=== PATIENT | male | born 1945 | race Caucasian/White ===

== ENCOUNTER 2016-07-14 13:41 | Outpatient (CLI) | payer OTHER ==
--- NOTE | 2016-07-14 19:21 | Diagnostic Imaging Report ---
Report Submission Date: Jul 14, 2016 3:04:00 PM CDT Patient Study Name: RASHIDA GUIDO Date: Jul 14, 2016 1:54:57 PM CDT Modality Type: CR Gender: M Description: SHOULDER : 49 Institution: [facility] Physician: NAWAF CAMPOVERDE - OP HISTORY: 70-year-old male with right clavicular pain after fall 4 days ago. COMPARISON: None available. TECHNIQUE: Two views of the right clavicle were performed. IMPRESSION: 1. No evidence of right clavicular fracture or acromioclavicular separation. 2. Postoperative changes of the right shoulder with a bone anchor in the right humeral head. 3. Acromioclavicular hypertrophy. 4. High-riding right humeral head, consistent with significant rotator cuff tendinopathy. Electronically signed on Jul 14, 2016 3:04:00 PM CDT by: Piotr BELTRAN
--- NOTE | 2016-07-14 19:21 | Diagnostic Imaging Report ---
Report Submission Date: Jul 14, 2016 3:01:51 PM CDT Patient Study Name: RASHIDA GUIDO Date: Jul 14, 2016 1:49:18 PM CDT Modality Type: CR Gender: M Description: SHOULDER : 49 Institution: [facility] Physician: NAWAF CAMPOVERDE - TREVA HISTORY: 70-year-old male with right shoulder pain after fall 4 days ago. COMPARISON: None available. TECHNIQUE: Three views of the right shoulder were performed. FINDINGS: No acute fracture or dislocation about the right shoulder. There are postoperative changes with a bone anchor in the humeral head. There is acromioclavicular hypertrophy. The humeral head is high-riding. IMPRESSION: 1. No acute fracture of the right shoulder. 2. Postoperative changes of the right shoulder with bone anchor in the humeral head. 3. Acromioclavicular hypertrophy. 4. High-riding humeral head consistent with significant rotator cuff tendinopathy. Electronically signed on Jul 14, 2016 3:01:51 PM CDT by: Piotr BELTRAN
== END 2016-07-14 13:42 ==
LOC: RAD 13:41
PROVIDERS: ATTEND Family Medicine
DX: M25.511 Pain in right shoulder (principal)
CPT/HCPCS: 73000; 73030

== ENCOUNTER 2017-07-01 12:23 | Outpatient (CLI) | payer OTHER ==
[2017-07-01 12:44] LABS: BASOPHILS % 1.2 (0.0-1.5); EOSINOPHILS % 3.8 % (0.0-6.8); MEAN CORPUSCULAR HEMOGLOBIN 31.6 pg (28.0-34.0); MEAN CORPUSCULAR VOLUME 93.1 fl (80.0-100.0); MONOCYTES % 5.2 % (0.0-11.0); NEUTROPHILS # 3.6 # k/uL (1.4-7.7)
[2017-07-01 13:03] LABS: eGFR (African) > 60; eGFR (Non-African) > 60
== END 2017-07-01 12:24 ==
LOC: LAB 12:23
PROVIDERS: ATTEND Family Medicine
DX: R07.9 Chest pain, unspecified (principal)
CPT/HCPCS: 36415; 80053; 84484; 85025